=== PATIENT | female | born 1950 | race Caucasian/White ===

== ENCOUNTER 2017-01-20 17:08 | Emergency (ER) | payer SELFPAY ==
[2017-01-20 17:14] VITALS: BP 165/86
[2017-01-20] MEDS ORDERED: DEXAMETHASONE SOD PHOS INJ 10 MG/1 ML VIAL IM ONE (17:55)
[2017-01-20] MEDS ORDERED: DIPHENHYDRAMINE HCL 50 MG/ML VIAL IM ONE (17:58)
[2017-01-20] MEDS ORDERED: TRIAMCINOLONE ACETONIDE 0.1% CREAM 15 GM TOP ONE (17:59)
--- NOTE | 2017-01-20 18:05 | ER Document Report ---
ED Skin Rash/Insect Bite/Abscs - General Chief Complaint: Rash Stated Complaint: RASH Time Seen by Provider: 01/20/17 17:43 Notes: 66 yo female c/o pruritic rash x 3 days. denies new contacts. TRAVEL OUTSIDE OF THE [place] IN LAST 30 DAYS: No - HPI Patient complains to provider of: Skin rash/lesion Skin Character: Rash Skin Temperature: Warm Quality of rash: Itchy Identify cause: No - Related Data Allergies/Adverse Reactions: amoxicillin trihydrate [From Augmentin] Allergy (Mild, Verified 02/22/14 13:56) Potassium Clavulanate * [From Augmentin] Allergy (Mild, Verified 02/22/14 13:56) Sulfa (Sulfonamide Antibiotics) Allergy (Mild, Verified 02/22/14 13:56) ciprofloxacin [From Cipro] Allergy (Verified 02/22/14 13:56) ciprofloxacin HCl [From Cipro] Allergy (Verified 02/22/14 13:56) Past Medical History - General Information source: Patient - Social History Smoking Status: Never Smoker Chew tobacco use (# tins/day): No Frequency of alcohol use: None Drug Abuse: None Family History: Reviewed & Not Pertinent Patient has suicidal ideation: No Patient has homicidal ideation: No - Past Medical History Cardiac Medical History: Reports: Hx Hypercholesterolemia, Hx Hypertension Pulmonary Medical History: Reports: Hx Asthma Renal/ Medical History: Denies: Hx Peritoneal Dialysis GI Medical History: Reports: Hx Gastroesophageal Reflux Disease Past Surgical History: Reports: Hx Tonsillectomy - Immunizations Hx Diphtheria, Pertussis, Tetanus Vaccination: Yes Review of Systems - Review of Systems Constitutional: No symptoms reported EENT: No symptoms reported Cardiovascular: No symptoms reported Respiratory: No symptoms reported Gastrointestinal: No symptoms reported Genitourinary: No symptoms reported Female Genitourinary: No symptoms reported Musculoskeletal: No symptoms reported Skin: See HPI, Rash Hematologic/Lymphatic: No symptoms reported Neurological/Psychological: No symptoms reported Physical Exam - Vital signs Vitals: Temp Pulse Resp BP Pulse Ox 98.2 F 90 19 165/86 H 95 01/20/17 17:12 01/20/17 17:12 01/20/17 17:12 01/20/17 17:12 01/20/17 17:12 Interpretation: Normal - General General appearance: Alert, Anxious In distress: None - HEENT Head: Normocephalic, Atraumatic Eyes: Normal Pupils: PERRL - Respiratory Respiratory status: No respiratory distress Chest status: Nontender Breath sounds: Normal Chest palpation: Normal - Cardiovascular Rhythm: Regular Heart sounds: Normal auscultation Murmur: No - Abdominal Inspection: Normal Distension: No distension Bowel sounds: Normal Tenderness: Nontender Organomegaly: No organomegaly - Back Back: Normal, Nontender - Extremities General upper extremity: Normal inspection, Nontender, Normal color, Normal ROM , Normal temperature General lower extremity: Normal inspection, Nontender, Normal color, Normal ROM , Normal temperature, Normal weight bearing. No: Sally's sign - Neurological Neuro grossly intact: Yes Cognition: Normal Orientation: AAOx4 [place] Coma Scale Eye Opening: Spontaneous Marcio Coma Scale Verbal: Oriented [place] Coma Scale Motor: Obeys Commands Marcio Coma Scale Total: 15 Speech: Normal Motor strength normal: LUE, RUE, LLE, RLE Sensory: Normal - Psychological Associated symptoms: Normal affect, Normal mood - Skin Skin Temperature: Warm Skin Moisture: Dry Skin Color: Normal Skin irregularity: Rash Location of irregularity: Extremities Character of irregularity: Papular, Vesicular - scattered papulovesicular patches to bilat volar forearms and lower extremities. no s/s secondary infection Course - Vital Signs Vital signs: Temp Pulse Resp BP Pulse Ox 98.2 F 90 19 165/86 H 95 01/20/17 17:12 01/20/17 17:12 01/20/17 17:12 01/20/17 17:12 01/20/17 17:12 Discharge - Discharge Clinical Impression: Contact dermatitis Qualifiers: Contact dermatitis type: unspecified Contact dermatitis trigger: unspecified trigger Qualified Code(s): L25.9 - Unspecified contact dermatitis, unspecified cause Disposition: HOME, SELF-CARE Instructions: Contact Dermatitis ([facility]), Steroid Medication, Steroid Medication Injection, Antihistamines ([facility]), Topical Steroid Cream or Ointment ([facility]) Prescriptions: Hydroxyzine HCl [Atarax 25 mg Tablet] 1 - 2 tab PO QID #25 tablet Triamcinolone Acetonide [Aristocort 0.5% Cream 15 gm] 1 applic TP BID #15 g Forms: Elevated Blood Pressure
== END 2017-01-20 18:21 | disposition home or self-care (01) ==
LOC: ER 17:08
DX: L25.9 Unspecified contact dermatitis, unspecified cause (principal); R21 Rash and other nonspecific skin eruption
CPT/HCPCS: 99282; 96372; J1200; J3490; J1100

== ENCOUNTER 2017-06-10 16:46 | Emergency (ER) | payer SELFPAY ==
--- NOTE | 2017-06-10 17:54 | ER Document Report ---
ED Medical Screen (RME) - General Chief Complaint: Chest Congestion Stated Complaint: CHEST PAIN Time Seen by Provider: 06/10/17 17:52 Notes: Patient is a 67-year-old female, past medical history hypertension, presents with chest pain and tingling in her bilateral arms. She is also feeling short of breath and has a dry cough with sinus congestion over the past few days. PE: NAD. Lungs CTAB. RRR. I have greeted and performed a rapid initial assessment of this patient. A comprehensive ED assessment and evaluation of the patient, analysis of test results and completion of the medical decision making process will be conducted by additional ED providers. TRAVEL OUTSIDE OF THE [place] IN LAST 30 DAYS: No - Related Data Allergies/Adverse Reactions: amoxicillin trihydrate [From Augmentin] Allergy (Mild, Verified 06/10/17 17:01) Potassium Clavulanate * [From Augmentin] Allergy (Mild, Verified 06/10/17 17:01) Sulfa (Sulfonamide Antibiotics) Allergy (Mild, Verified 06/10/17 17:01) ciprofloxacin [From Cipro] Allergy (Verified 06/10/17 17:01) ciprofloxacin HCl [From Cipro] Allergy (Verified 06/10/17 17:01) Home Medications: Current Home Medications Esomeprazole Magnesium [Nexium 24Hr] 40 mg PO DAILY 06/10/17 [History] Past Medical History - Social History Chew tobacco use (# tins/day): No Frequency of alcohol use: None Drug Abuse: None - Past Medical History Cardiac Medical History: Reports: Hx Hypercholesterolemia, Hx Hypertension Pulmonary Medical History: Reports: Hx Asthma Renal/ Medical History: Denies: Hx Peritoneal Dialysis GI Medical History: Reports: Hx Gastroesophageal Reflux Disease Past Surgical History: Reports: Hx Tonsillectomy - Immunizations Hx Diphtheria, Pertussis, Tetanus Vaccination: Yes Physical Exam - Vital signs Vitals: Temp Pulse BP Pulse Ox 98.5 F 97 150/83 H 97 06/10/17 16:56 06/10/17 16:56 06/10/17 16:56 06/10/17 16:56 Course - Vital Signs Vital signs: Temp Pulse Resp BP Pulse Ox 98.5 F 97 150/83 H 97 06/10/17 16:56 06/10/17 16:56 06/10/17 16:56 06/10/17 16:56
[2017-06-10 19:05] LABS: ABSOLUTE EOSINOPHILS # (AUTO) 0.1 10^3/uL (0.0-0.6); ABSOLUTE MONOCYTES (AUTO) 0.6 10^3/uL (0.1-1.4); ABSOLUTE NEUT (AUTO) 4.9 10^3/uL (1.7-8.2); BASOPHILS % (AUTO) 0.6 % (0-2); HEMATOCRIT 43.1 % (36.0-47.0); HEMOGLOBIN 15.2 g/dL (12.0-15.5); HGB HCT DIFFERENCE 2.5; LYMPHOCYTES % (AUTO) 26.2 % (13-45); MEAN CORPUSCULAR HGB CONC 35.3 g/dL (32.0-36.0); MEAN CORPUSCULAR VOLUME 94 fl (80-97); MONOCYTES % (AUTO) 8.4 % (3-13); RED CELL DISTRIBUTION WIDTH 13.4 % (11.5-14.0); SEGMENTED NEUTROPHILS % (AUTO) 63.8 % (42-78); WHITE BLOOD COUNT 7.7 10^3/uL (4.0-10.5)
[2017-06-10 19:17] LABS: ALANINE AMINOTRANSFERASE 32 U/L (9-52); ALBUMIN 4.8 g/dL (3.5-5.0); ALKALINE PHOSPHATASE 65 U/L (38-126); ANION GAP 15 (5-19); ASPARTATE AMINO TRANSFERASE 19 U/L (14-36); BILIRUBIN,DIRECT 0.4 mg/dL (0.0-0.4); BILIRUBIN,TOTAL 0.5 mg/dL (0.2-1.3); BLOOD UREA NITROGEN 22 mg/dL (7-20); CALCIUM 10.3 mg/dL (8.4-10.2); CARBON DIOXIDE 22 mmol/L (22-30); CHLORIDE 106 mmol/L (98-107); CREATINE KINASE 79 U/L (30-135); CREATININE RESULT 0.91 mg/dL (0.52-1.25); GLUCOSE 99 mg/dL (75-110); POTASSIUM 4.6 mmol/L (3.6-5.0); SODIUM 143.1 mmol/L (137-145); TOTAL PROTEIN 7.5 g/dL (6.3-8.2)
[2017-06-10 19:29] LABS: CREATINE KINASE MB 1.05 ng/mL (<4.55)
[2017-06-10 19:30] LABS: TROPONIN I < 0.012 ng/mL
--- NOTE | 2017-06-10 20:00 | ER Document Report ---
ED General - General Chief Complaint: Chest Congestion Stated Complaint: CHEST PAIN Time Seen by Provider: 06/10/17 17:52 Mode of Arrival: Ambulatory Information source: Patient Notes: 67-year-old female presents with complaints of chest congestion cough. Patient denies any fevers or chills notes generalized body aches. Patient states she believes she is having upper respiratory infection denies any chest pain but notes achiness in her chest TRAVEL OUTSIDE OF THE [place] IN LAST 30 DAYS: No - HPI Onset: Yesterday Onset/Duration: Persistent Quality of pain: Achy Severity: Mild Pain Level: 1 Associated symptoms: Body/muscle aches, Nonproductive cough Exacerbated by: Denies Relieved by: Denies Similar symptoms previously: No Recently seen / treated by doctor: No - Related Data Allergies/Adverse Reactions: amoxicillin trihydrate [From Augmentin] Allergy (Mild, Verified 06/10/17 17:01) Potassium Clavulanate * [From Augmentin] Allergy (Mild, Verified 06/10/17 17:01) Sulfa (Sulfonamide Antibiotics) Allergy (Mild, Verified 06/10/17 17:01) ciprofloxacin [From Cipro] Allergy (Verified 06/10/17 17:01) ciprofloxacin HCl [From Cipro] Allergy (Verified 06/10/17 17:01) Home Medications: Current Home Medications Esomeprazole Magnesium [Nexium 24Hr] 40 mg PO DAILY 06/10/17 [History] Past Medical History - Social History Smoking Status: Never Smoker Cigarette use (# per day): No Chew tobacco use (# tins/day): No Smoking Education Provided: No Frequency of alcohol use: None Drug Abuse: None Family History: Reviewed & Not Pertinent Patient has suicidal ideation: No Patient has homicidal ideation: No - Past Medical History Cardiac Medical History: Reports: Hx Hypercholesterolemia, Hx Hypertension Pulmonary Medical History: Reports: Hx Asthma Renal/ Medical History: Denies: Hx Peritoneal Dialysis GI Medical History: Reports: Hx Gastroesophageal Reflux Disease Past Surgical History: Reports: Hx Tonsillectomy - Immunizations Hx Diphtheria, Pertussis, Tetanus Vaccination: Yes Review of Systems - Review of Systems Notes: REVIEW OF SYSTEMS: CONSTITUTIONAL : Denies fever, chills, or sweats. Denies recent illness. Admits to generalized malaise EENT: Denies eye, ear, throat, or mouth pain or symptoms. Denies nasal or sinus congestion or discharge. Denies throat, tongue, or mouth swelling or difficulty swallowing. CARDIOVASCULAR: Denies chest pain. Denies palpitations or racing or irregular heart beat. Denies ankle edema. RESPIRATORY: Admits to cough congestion. GASTROINTESTINAL: Denies abdominal pain or distention. Denies nausea, vomiting , or diarrhea. Denies blood in vomitus, stools, or per rectum. Denies black, tarry stools. Denies constipation. GENITOURINARY: Denies difficulty urinating, painful urination, burning, frequency, blood in urine, or discharge. FEMALE GENITOURINARY: Denies vaginal bleeding, heavy or abnormal periods, irregular periods. Denies vaginal discharge or odor. MUSCULOSKELETAL: Denies back or neck pain or stiffness. Denies joint pain or swelling. SKIN: Denies rash, lesions or sores. HEMATOLOGIC : Denies easy bruising or bleeding. LYMPHATIC: Denies swollen, enlarged glands. NEUROLOGICAL: Denies confusion or altered mental status. Denies passing out or loss of consciousness. Denies dizziness or lightheadedness. Denies headache. Denies weakness or paralysis or loss of use of either side. Denies problems with gait or speech. Denies sensory loss, numbness, or tingling. Denies seizures. PSYCHIATRIC: Denies anxiety or stress. Denies depression, suicidal ideation, or homicidal ideation. ALL OTHER SYSTEMS REVIEWED AND NEGATIVE. PHYSICAL EXAMINATION: GENERAL: Well-appearing, well-nourished and in no acute distress. HEAD: Atraumatic, normocephalic. EYES: Pupils equal round and reactive to light, extraocular movements intact, conjunctiva are normal. ENT: Nares patent, oropharynx clear without exudates. Moist mucous membranes. NECK: Normal range of motion, supple without lymphadenopathy LUNGS: Breath sounds clear to auscultation bilaterally and equal. No wheezes rales or rhonchi. HEART: Regular rate and rhythm without murmurs ABDOMEN: Soft, nontender, nondistended abdomen. No guarding, no rebound. No masses appreciated. Female : deferred Musculoskeletal: Normal range of motion, no pitting or edema. No cyanosis. NEUROLOGICAL: Cranial nerves grossly intact. Normal speech, normal gait. Normal sensory, motor exams PSYCH: Normal mood, normal affect. SKIN: Warm, Dry, normal turgor, no rashes or lesions noted. Dictation was performed using Dragon voice recognition software Physical Exam - Vital signs Vitals: Temp Pulse BP Pulse Ox 98.5 F 97 150/83 H 97 06/10/17 16:56 06/10/17 16:56 06/10/17 16:56 06/10/17 16:56 Course - Re-evaluation Re-evalutation: 06/10/17 23:48 Patient's presentation is consistent with a viral URI syndrome. Patient overall looks well is in no distress, lab work was performed as the patient had very vague complaints and no significant abnormality was noted. I believe the patient in fact is having a viral syndrome but I have given her very strict return precautions to return immediately if there are any other concerns After performing a Medical Screening Examination, I estimate there is LOW risk for ACUTE CORONARY SYNDROME, PULMONARY EMBOLI, RESPIRATORY FAILURE, SEPSIS OR MENINGITIS, thus I consider the discharge disposition reasonable. I have reevaluated this patient multiple times and no significant life threatening changes are noted. The patient and I have discussed the diagnosis and risks, and we agree with discharging home with close follow-up. We also discussed returning to the Emergency Department immediately if new or worsening symptoms occur. We have discussed the symptoms which are most concerning (e.g., changing or worsening pain, trouble swallowing or breathing, neck stiffness, fever) that necessitate immediate return. - Vital Signs Vital signs: Temp Pulse Resp BP Pulse Ox 98.6 F 97 19 109/67 99 06/10/17 20:01 06/10/17 16:56 06/10/17 20:01 06/10/17 20:01 06/10/17 20:01 - Laboratory Result Diagrams: 06/10/17 17:52 06/10/17 17:52 Laboratory results interpreted by me: 06/10/17 17:52 BUN 22 H Calcium 10.3 H - EKG Interpretation by Ar EKG shows normal: Sinus rhythm, [place], Intervals, QRS Complexes Discharge - Discharge Clinical Impression: Chest congestion Hypertension Qualifiers: Hypertension type: essential hypertension Qualified Code(s): I10 - Essential ( primary) hypertension Condition: Stable Disposition: HOME, SELF-CARE Instructions: Viral Syndrome ([facility]) Additional Instructions: Follow up with your physician tomorrow for further care or return to the ED IMMEDIATELY if symptoms worsen or new concerns occur. If you cannot afford to follow up with your primary care physician a list of low cost clinics have been provided at the end of your discharge papers as well.
[2017-06-10 20:12] VITALS: BP 109/67
--- NOTE | 2017-06-11 09:27 | EKG REPORT ---
SEVERITY:- NORMAL ECG - SINUS RHYTHM : Confirmed by: Hal Ibarra 11-Jun-2017 09:26:34
== END 2017-06-10 20:18 | disposition home or self-care (01) ==
LOC: ER 16:46
DX: R09.89 Other specified symptoms and signs involving the circulatory and respiratory systems (principal); R05 Cough; M79.1 Myalgia; I10 Essential (primary) hypertension; J45.909 Unspecified asthma, uncomplicated; Z88.0 Allergy status to penicillin; Z88.2 Allergy status to sulfonamides; Z88.1 Allergy status to other antibiotic agents
CPT/HCPCS: 36415; 80053; 82550; 82553; 84484; 85025; 93005; 93010; 99283

== ENCOUNTER 2017-09-17 21:44 | Emergency (ER) | payer SELFPAY ==
[2017-09-17] MEDS ORDERED: CEPHALEXIN 500 MG CAPSULE PO ONE (23:21)
--- NOTE | 2017-09-17 23:24 | ER Document Report ---
HPI - HPI Patient complains to provider of: Insect bite Onset: Other - Yesterday at 5:30 PM Pain Level: 4 Context: 67-year-old obese nondiabetic hypertensive female was bitten by something when she she raised her right arm to open a car door yesterday evening at 5:30 PM. It itches but hurts at the same time. She has a mild headache today. The erythema surrounding the bite has gotten larger today and she wanted to make sure there was nothing majorly wrong. No fever. Associated Symptoms: None Exacerbated by: Denies Relieved by: Denies Similar symptoms previously: No Recently seen / treated by doctor: No - ROS ROS below otherwise negative: Yes Systems Reviewed and Negative: Yes All other systems reviewed and negative - REPRODUCTIVE LMP: na Reproductive: DENIES: : Past Medical History - General Information source: Patient - Social History Smoking Status: Never Smoker Frequency of alcohol use: None Drug Abuse: None Lives with: Family Family History: Reviewed & Not Pertinent - Past Medical History Cardiac Medical History: Reports: Hx Hypercholesterolemia, Hx Hypertension Pulmonary Medical History: Reports: Hx Asthma Renal/ Medical History: Denies: Hx Peritoneal Dialysis GI Medical History: Reports: Hx Gastroesophageal Reflux Disease Past Surgical History: Reports: Hx Tonsillectomy - Immunizations Hx Diphtheria, Pertussis, Tetanus Vaccination: Yes Vertical Provider Document - CONSTITUTIONAL Agree With Documented VS: Yes Exam Limitations: No Limitations - INFECTION CONTROL TRAVEL OUTSIDE OF THE [place] IN LAST 30 DAYS: No - HEENT HEENT: Normocephalic - NECK Neck: Supple - RESPIRATORY Respiratory: Breath Sounds Normal, No Respiratory Distress O2 Sat by Pulse Oximetry: 97 - CARDIOVASCULAR Cardiovascular: Regular Rate, Regular Rhythm - MUSCULOSKELETAL/EXTREMETIES Musculoskeletal/Extremeties: MAEW, FROM, Tender - mild tender to 0.5 mm indurated bite volar right mid upper arm with flat, mildly warm surrounding 7 cm pink non tender skin, no adenopathy. no necrosis or sloughing. - NEURO Level of Consciousness: Awake, Alert Motor/Sensory: No Motor Deficit, No Sensory Deficit - DERM Integumentary: Warm, Dry Notes: see above Course - Re-evaluation Re-evalutation: 09/17/17 23:22 Patient states she is able to take Keflex she has taken it in the past without allergic reaction. - Vital Signs Vital signs: Temp Pulse Resp BP Pulse Ox 98.1 F 79 120/69 97 09/17/17 22:09 09/17/17 22:09 09/17/17 22:09 09/17/17 22:09 Discharge - Discharge Clinical Impression: Local reaction to insect bite Condition: Good Disposition: HOME, SELF-CARE Instructions: Cephalexin ([facility]), Use of Diphenhydramine, Family Physicians / Practices, Ice Packs ([facility]) Additional Instructions: cool compress antibiotics as prescribed, if the red area resolves you can stop the antibiotic benadryl for the itch to er any concerns list of family MD given to you since new to the area
[2017-09-17 23:46] VITALS: BP 142/68
== END 2017-09-17 23:44 | disposition home or self-care (01) ==
LOC: ER 21:44
DX: S40.861A Insect bite (nonvenomous) of right upper arm, initial encounter (principal); R51 Headache; E78.00 Pure hypercholesterolemia, unspecified; I10 Essential (primary) hypertension; W57.XXXA Bitten or stung by nonvenomous insect and other nonvenomous arthropods, initial encounter
CPT/HCPCS: 99281

== ENCOUNTER 2018-06-25 12:39 | Emergency (ER) | payer MEDICARE ==
[2018-06-25] MEDS ORDERED: NORMAL SALINE 1000 ML 1,000 ML IV ONE (13:13)
[2018-06-25] MEDS ORDERED: ONDANSETRON HCL INJ/PF 4 MG/2 ML SDV IV ONE (13:13)
--- NOTE | 2018-06-25 13:29 | ER Document Report ---
ED Medical Screen (RME) - General Chief Complaint: GI Bleeding Stated Complaint: VOMITING Time Seen by Provider: 06/25/18 12:56 Notes: Patient is a 68-year-old female that presents to the emergency department for chief complaint of generalized weakness, cramping and nausea. Patient states this all started after receiving steroid injections in her knees, but her orthopedic surgeon did not think this was related, she also reports having a nosebleed last night. ROS: Other than noted above, the 12 point review of systems was reviewed with the patient and were negative, all pertinent findings are included in the HPI. PHYSICAL EXAMINATION: Vital signs reviewed. GENERAL: Well-appearing, well-nourished and in no acute distress. HEAD: Atraumatic, normocephalic. EYES: Pupils equal round extraocular movements intact, conjunctiva are normal. ENT: Nares patent NECK: Normal range of motion CV: Heart regular rate and rhythm LUNGS: No respiratory distress Musculoskeletal: Normal range of motion NEUROLOGICAL: Normal speech PSYCH: Normal mood, normal affect. MDM: Patient seen and examined for rapid initial assessment. Vital signs reviewed. A comprehensive ED assessment and evaluation of the patient, analysis of test results and completion of the medical decision making process will be conducted by additional ED providers. *Note is created using voice recognition software and may contain spelling, syntax or grammatical errors. TRAVEL OUTSIDE OF THE [place] IN LAST 30 DAYS: No - Related Data Allergies/Adverse Reactions: amoxicillin trihydrate [From Augmentin] Allergy (Mild, Verified 06/25/18 12:56) Potassium Clavulanate * [From Augmentin] Allergy (Mild, Verified 06/25/18 12:56) Sulfa (Sulfonamide Antibiotics) Allergy (Mild, Verified 06/25/18 12:56) ciprofloxacin [From Cipro] Allergy (Verified 06/25/18 12:56) ciprofloxacin HCl [From Cipro] Allergy (Verified 06/25/18 12:56) ibuprofen Allergy (Verified 06/25/18 12:57) Past Medical History - Social History Chew tobacco use (# tins/day): No Frequency of alcohol use: None Drug Abuse: None - Past Medical History Cardiac Medical History: Reports: Hx Hypercholesterolemia, Hx Hypertension Pulmonary Medical History: Reports: Hx Asthma Renal/ Medical History: Denies: Hx Peritoneal Dialysis GI Medical History: Reports: Hx Gastroesophageal Reflux Disease Past Surgical History: Reports: Hx Tonsillectomy - Immunizations Hx Diphtheria, Pertussis, Tetanus Vaccination: Yes Physical Exam - Vital signs Vitals: Temp Pulse Resp BP Pulse Ox 98.2 F 92 16 144/80 H 97 06/25/18 12:54 06/25/18 12:54 06/25/18 12:54 06/25/18 12:54 06/25/18 12:54 Course - Vital Signs Vital signs: Temp Pulse Resp BP Pulse Ox 98.2 F 92 16 144/80 H 97 06/25/18 12:54 06/25/18 12:54 06/25/18 12:54 06/25/18 12:54 06/25/18 12:54
[2018-06-25 13:57] LABS: ABSOLUTE BASOPHILS # (AUTO) 0.1 10^3/uL (0.0-0.2); ABSOLUTE EOSINOPHILS # (AUTO) 0.1 10^3/uL (0.0-0.6); ABSOLUTE MONOCYTES (AUTO) 0.8 10^3/uL (0.1-1.4); EOSINOPHILS % (AUTO) 1.4 % (0-6); HEMATOCRIT 42.8 % (36.0-47.0); HEMOGLOBIN 14.9 g/dL (12.0-15.5); LYMPHOCYTES % (AUTO) 19.8 % (13-45); MEAN CORPUSCULAR HEMOGLOBIN 32.9 pg (27.0-33.4); MEAN CORPUSCULAR HGB CONC 34.8 g/dL (32.0-36.0); MEAN CORPUSCULAR VOLUME 95 fl (80-97); MONOCYTES % (AUTO) 7.8 % (3-13); PLATELET COUNT 255 10^3/uL (150-450); RED BLOOD COUNT 4.53 10^6/uL (3.72-5.28); RED CELL DISTRIBUTION WIDTH 13.6 % (11.5-14.0); TOTAL CELLS COUNTED % (AUTO) 100 %
[2018-06-25 14:04] LABS: APPEARANCE,URINE SLIGHTLY-CLOUDY; BILIRUBIN,URINE NEGATIVE (NEGATIVE); COLOR,URINE YELLOW; GLUCOSE, URINE NEGATIVE (NEGATIVE); KETONES,URINE NEGATIVE (NEGATIVE); LEUKOCYTE ESTERASE,URINE MODERATE (NEGATIVE); NITRITE,URINE NEGATIVE (NEGATIVE); PROTEIN,URINE NEGATIVE (NEGATIVE); UROBILINOGEN,URINE NEGATIVE mg/dL (<2.0)
[2018-06-25 14:27] LABS: ALANINE AMINOTRANSFERASE 23 U/L (9-52); ALBUMIN 4.7 g/dL (3.5-5.0); ALKALINE PHOSPHATASE 60 U/L (38-126); ANION GAP 12 (5-19); ASPARTATE AMINO TRANSFERASE 40 U/L (14-36); BILIRUBIN,DIRECT 0.3 mg/dL (0.0-0.4); BILIRUBIN,TOTAL 0.6 mg/dL (0.2-1.3); BLOOD UREA NITROGEN 25 mg/dL (7-20); CALCIUM 9.7 mg/dL (8.4-10.2); CARBON DIOXIDE 24 mmol/L (22-30); CHLORIDE 106 mmol/L (98-107); GLUCOSE 99 mg/dL (75-110); LIPASE 146.1 U/L (23-300); POTASSIUM 4.4 mmol/L (3.6-5.0); SODIUM 142.1 mmol/L (137-145); TOTAL PROTEIN 7.7 g/dL (6.3-8.2)
--- NOTE | 2018-06-25 14:48 | RADIOLOGY REPORT (SQ) ---
EXAM DESCRIPTION: CHEST 2 VIEWS COMPLETED DATE/TIME: 06/25/2018 2:13 pm REASON FOR STUDY: cough, generalized weakness COMPARISON: 02/13/2011 EXAM PARAMETERS: NUMBER OF VIEWS: two views TECHNIQUE: Digital Frontal and Lateral radiographic views of the chest acquired. RADIATION DOSE: NA LIMITATIONS: none FINDINGS: LUNGS AND PLEURA: No opacities, masses or pneumothorax. No pleural effusion. MEDIASTINUM AND HILAR STRUCTURES: No masses or contour abnormalities. HEART AND VASCULAR STRUCTURES: Heart normal size. No evidence for failure. BONES: No acute findings. HARDWARE: None in the chest. OTHER: No other significant finding. IMPRESSION: NO ACUTE RADIOGRAPHIC FINDING IN THE CHEST. TECHNICAL DOCUMENTATION: JOB ID: [id number] [employer]- All Rights Reserved Reading location - IP/workstation name: [email or web address]
--- NOTE | 2018-06-25 17:12 | ER Document Report ---
ED General - General Chief Complaint: GI Bleeding Stated Complaint: VOMITING Time Seen by Provider: 06/25/18 12:56 Mode of Arrival: Ambulatory Information source: Patient Notes: Patient is a 68-year-old female comes emergency room complaining of vomiting blood and epistaxis. Patient states that it all seems to have started approximately 1 month ago when she had injections of cortisone into her knees. Patient has bad knees and x-rays show that she is [id number]. She had a shots done by Dr. Sebastian and this was 3 months ago. Following those shots patient is started having all kinds of symptomatology which she says is bringing her down. She has been having cramping in her lower extremities she has had nausea and fatigue she has had all kinds of discomfort she contacted her orthopedist Dr. Sebastian and he told her that the cortisone would have caused this. They went by to see either primary care physician today Dr. Destin Shelton but they had someone covering for him when I told him what they are talking about he told him to come to ER. Patient states that she is just felt rundown and ragged and not acting her normal self. Her daughter states that this is very true that she is normally an upbeat person and the only thing ever slowed her down with her knees. Both knees are [id number] and they are going to have to be replaced but they thought they would try the cortisone shots first. Last night patient woke up and had a cough and as she coughed a large amount of bright red blood came pouring out of her mouth her daughter and then as she was vomiting that out blood came out her nose as well. They cleaned her up apply pressure to the nose and patient has had no bleeding since then. She denies any shortness of breath or chest pain. She is eating well and drinking well according to her and her daughter. Her muscle cramps have been gotten worse. Patient states she drinks at least 5-6 bottles of water a day. TRAVEL OUTSIDE OF THE [place] IN LAST 30 DAYS: No - HPI Onset: Other - Last night Onset/Duration: Sudden, Better Quality of pain: Achy, Cramping Severity: Moderate Pain Level: 3 Associated symptoms: Productive cough, Nausea - So, Vomiting Exacerbated by: Other - Nothing Similar symptoms previously: No Recently seen / treated by doctor: No - Related Data Allergies/Adverse Reactions: amoxicillin trihydrate [From Augmentin] Allergy (Mild, Verified 06/25/18 12:56) Potassium Clavulanate * [From Augmentin] Allergy (Mild, Verified 06/25/18 12:56) Sulfa (Sulfonamide Antibiotics) Allergy (Mild, Verified 06/25/18 12:56) ciprofloxacin [From Cipro] Allergy (Verified 06/25/18 12:56) ciprofloxacin HCl [From Cipro] Allergy (Verified 06/25/18 12:56) ibuprofen Allergy (Verified 06/25/18 12:57) Past Medical History - General Information source: Patient, Relative - Social History Smoking Status: Never Smoker Cigarette use (# per day): No Chew tobacco use (# tins/day): No Smoking Education Provided: No Frequency of alcohol use: None Drug Abuse: None Lives with: Family Family History: Reviewed & Not Pertinent Patient has suicidal ideation: No Patient has homicidal ideation: No - Past Medical History Cardiac Medical History: Reports: Hx Hypercholesterolemia, Hx Hypertension Pulmonary Medical History: Reports: Hx Asthma Renal/ Medical History: Denies: Hx Peritoneal Dialysis GI Medical History: Reports: Hx Gastroesophageal Reflux Disease Past Surgical History: Reports: Hx Tonsillectomy - Immunizations Hx Diphtheria, Pertussis, Tetanus Vaccination: Yes Review of Systems - Review of Systems Constitutional: No symptoms reported EENT: No symptoms reported, Nose pain, Nose congestion, Other - Hematemesis epistaxis, Cardiovascular: No symptoms reported Respiratory: No symptoms reported Gastrointestinal: See HPI Genitourinary: No symptoms reported Female Genitourinary: No symptoms reported Musculoskeletal: No symptoms reported Skin: No symptoms reported Hematologic/Lymphatic: No symptoms reported Neurological/Psychological: No symptoms reported -: Yes All other systems reviewed and negative Physical Exam - Vital signs Vitals: Temp Pulse Resp BP Pulse Ox 98.2 F 92 16 144/80 H 97 06/25/18 12:54 06/25/18 12:54 06/25/18 12:54 06/25/18 12:54 06/25/18 12:54 - Notes Notes: PHYSICAL EXAMINATION: GENERAL: Patient is a well-nourished well developed obese 68-year-old female who is in no apparent distress on physical examination. Patient is awake alert and oriented x4. She is arousable out of laying or taking a nap waiting on us to see her. HEAD: Atraumatic, normocephalic. EYES: Pupils equal round and reactive to light, extraocular movements intact, conjunctiva are normal. ENT: Nares patent, oropharynx clear without exudates. Moist mucous membranes. Examination of the internal nose as far as I can see with the speculum shows no sign of blood clots to dried blood or any excoriations. Examination of the oral cavity also shows no signs of lesions or bleeding or having dried blood. NECK: Normal range of motion, supple without lymphadenopathy LUNGS: Breath sounds clear to auscultation bilaterally and equal. No wheezes rales or rhonchi. HEART: Regular rate and rhythm without murmurs ABDOMEN: No guarding, no rebound. No masses appreciated. Female : deferred Musculoskeletal: Normal range of motion, no pitting or edema. No cyanosis. NEUROLOGICAL: Normal speech, normal gait. Normal sensory, motor exams PSYCH: Normal mood, normal affect. SKIN: Warm, Dry, normal turgor, no rashes or lesions noted. Course - Re-evaluation Re-evalutation: 06/25/18 17:18 I have gone and explained to patient and daughter after looking at the labs to do my physical examination there is nothing abnormal that I can find. Originally I went into them around 330 4:00 and we discussed this and I just could not believe that there was nothing wrong. I did inform them that there was a slight UTI that I would treat her for that and it could be causing her nausea but is not causing although to think she is got. I told her that I may not build to find the answers to this however I did agree to do a CRP and a sed rate I told him would take approximately an hour to an hour and a half to get those back and they agree to wait. I try to explain to them that these are markers that show inflammation/infection and if they were negative they are negative they are positive then we have to search some more. Patient's CRP came back at less than 5.0. And her ESR came back at 19 which is normal. I have explained to them that may not be a little told him was going on with her tonight that they may have to have a further workup for possibly autoimmune problems I do not know however I know that there is nothing is going to kill her tonight. I will treat her for the small urinary tract infection she has with this is not causing the problems. They can always return if anything pops up or gets worse. Patient does not take any kind of blood thinners. She actually takes no medications. ` - Vital Signs Vital signs: Temp Pulse Resp BP Pulse Ox 98.2 F 92 16 103/56 L 99 06/25/18 12:54 06/25/18 12:54 06/25/18 12:54 06/25/18 15:01 06/25/18 15:01 - Laboratory Result Diagrams: 06/25/18 13:35 06/25/18 13:35 Laboratory results interpreted by me: 06/25/18 06/25/18 13:35 13:35 BUN 25 H AST 40 H Urine Blood SMALL H Ur Leukocyte Esterase MODERATE H Discharge - Discharge Clinical Impression: Epistaxis, Hematemesis with nausea UTI (urinary tract infection) Qualifiers: Urinary tract infection type: acute cystitis Hematuria presence: without hematuria Qualified Code(s): N30.00 - Acute cystitis without hematuria Condition: Stable Disposition: HOME, SELF-CARE Instructions: Nitrofurantoin ([facility]), Prilosec (Acid Pump Inhibitor) ([facility]), Upper Gastrointestinal Bleeding ([facility]), Urinary Tract Infection ([facility]) Additional Instructions: As of informed you I cannot really tell you what is happening with the cortisone shots in the knee and their correlation to your body aching pain. There is always a chance that you have some type of an autoimmune immune response and takes time for her to rise course there is nothing out of the ER I can do to prove or disprove that fact. At this time I would say follow-up with your primary care is your best advice and there may be other test he can run out patients like a electrophoresis study that I can do out of the emergency room because it is not an emergent type of test. Should you have any change in your status if you have active bleeding please return to ER let us take another look at you and situation. I cannot see any ulcerations in the nasal area nor in the oral cavity. But this does not mean that is not thereby just cannot see them. I am going to treat you for the urinary tract infection it is a small 1 I will also culture the urine in case the antibiotic is one that you might be resistant to. Prescriptions: Nitrofurantoin/Nitrofuran Mac [Macrobid 100 mg Capsule] 1 tab PO BID #20 capsule Promethazine HCl [Phenergan 25 mg Tablet] 1 - 2 tab PO Q6H PRN #15 tablet PRN Reason: Referrals: [facility] [NO LOCAL MD] - Follow up as needed
[2018-06-25 17:44] VITALS: BP 122/68
--- NOTE | 2018-06-25 22:30 | EKG REPORT ---
SEVERITY:- BORDERLINE ECG - SINUS RHYTHM ATRIAL PREMATURE COMPLEX LOW VOLTAGE THROUGHOUT : Confirmed by: Immanuel Zafar MD 25-Jun-2018 22:29:45
== END 2018-06-25 17:44 | disposition home or self-care (01) ==
LOC: ER 12:39
DX: K92.0 Hematemesis (principal); R04.0 Epistaxis; N30.00 Acute cystitis without hematuria; R53.83 Other fatigue; R25.2 Cramp and spasm; R04.2 Hemoptysis; I10 Essential (primary) hypertension; J45.909 Unspecified asthma, uncomplicated; E66.9 Obesity, unspecified; Z88.0 Allergy status to penicillin; Z88.2 Allergy status to sulfonamides; Z88.1 Allergy status to other antibiotic agents; Z88.6 Allergy status to analgesic agent
CPT/HCPCS: 93005; 99285; 96361; 96374; 36415; 83690; 85025; 85652; 86140; 80053; 81001; 84484; 71046; 93010; J2405; J7030

== ENCOUNTER 2019-08-28 15:03 | Emergency (ER) | payer MEDICARE ==
--- NOTE | 2019-08-28 16:23 | ER Document Report ---
ED Medical Screen (RME) - General Chief Complaint: Urinary Problem Stated Complaint: URINARY PROBLEM Time Seen by Provider: 08/28/19 16:20 Notes: 69 y/o female presents for dysuria, pelvic pressure, and low back pain for 4 days. Pt states she thinks it may be a UTI. ABd soft, nontender. No CVA TEnderness. Denies vomiting, flank pain. Associated nausea. I have greeted and performed a rapid initial assessment of this patient. A comprehensive ED assessment and evaluation of the patient, analysis of test results and completion of the medical decision making process with be conducted by additional ED providers. TRAVEL OUTSIDE OF THE [place] IN LAST 30 DAYS: No - Related Data Allergies/Adverse Reactions: amoxicillin trihydrate [From Augmentin] Allergy (Mild, Verified 06/25/18 12:56) Potassium Clavulanate * [From Augmentin] Allergy (Mild, Verified 06/25/18 12:56) Sulfa (Sulfonamide Antibiotics) Allergy (Mild, Verified 06/25/18 12:56) ciprofloxacin [From Cipro] Allergy (Verified 06/25/18 12:56) ciprofloxacin HCl [From Cipro] Allergy (Verified 06/25/18 12:56) ibuprofen Allergy (Verified 06/25/18 12:57) Past Medical History - Past Medical History Cardiac Medical History: Reports: Hx Hypercholesterolemia, Hx Hypertension Pulmonary Medical History: Reports: Hx Asthma Renal/ Medical History: Denies: Hx Peritoneal Dialysis GI Medical History: Reports: Hx Gastroesophageal Reflux Disease Past Surgical History: Reports: Hx Tonsillectomy - Immunizations Hx Diphtheria, Pertussis, Tetanus Vaccination: Yes Physical Exam - Vital signs Vitals: Temp Pulse Resp BP Pulse Ox 98.3 F 101 H 18 155/84 H 97 08/28/19 15:20 08/28/19 15:20 08/28/19 15:20 08/28/19 15:20 08/28/19 15:20 Course - Vital Signs Vital signs: Temp Pulse Resp BP Pulse Ox 98.3 F 101 H 18 155/84 H 97 08/28/19 15:20 08/28/19 15:20 08/28/19 15:20 08/28/19 15:20 08/28/19 15:20
[2019-08-28 17:12] LABS: AMORPHOUS SEDIMENT,URINE TRACE /HPF; APPEARANCE,URINE CLOUDY; BILIRUBIN,URINE NEGATIVE (NEGATIVE); COLOR,URINE AMBER; GLUCOSE, URINE NEGATIVE (NEGATIVE); KETONES,URINE NEGATIVE (NEGATIVE); PROTEIN,URINE 100 mg/dL (NEGATIVE); URINE SPECIFIC GRAVITY 1.021; UROBILINOGEN,URINE NEGATIVE mg/dL (<2.0)
--- NOTE | 2019-08-28 17:30 | ER Document Report ---
ED General - General Chief Complaint: Urinary Problem Stated Complaint: URINARY PROBLEM Time Seen by Provider: 08/28/19 16:20 Primary Care Provider: [facility] [Provider Group] - Follow up in 3-5 days LYUBOV CLOUD MD [ACTIVE STAFF] - Follow up in 3-5 days Notes: 69 y/o female presents for dysuria, pelvic pressure, and low back pain for 4 days. Associated nausea. Pt states she thinks it may be a UTI. Pt denies any vomiting, fever, flank pain, abdominal pain, diarrhea/constipation, chest pain, dyspnea. Pt states she has been taking Azo with little relief. TRAVEL OUTSIDE OF THE [place] IN LAST 30 DAYS: No - Related Data Allergies/Adverse Reactions: amoxicillin trihydrate [From Augmentin] Allergy (Mild, Verified 06/25/18 12:56) Potassium Clavulanate * [From Augmentin] Allergy (Mild, Verified 06/25/18 12:56) Sulfa (Sulfonamide Antibiotics) Allergy (Mild, Verified 06/25/18 12:56) ciprofloxacin [From Cipro] Allergy (Verified 06/25/18 12:56) ciprofloxacin HCl [From Cipro] Allergy (Verified 06/25/18 12:56) ibuprofen Allergy (Verified 06/25/18 12:57) Past Medical History - Social History Smoking Status: Unknown if Ever Smoked Frequency of alcohol use: None Drug Abuse: None Family History: Reviewed & Not Pertinent Patient has suicidal ideation: No Patient has homicidal ideation: No - Past Medical History Cardiac Medical History: Reports: Hx Hypercholesterolemia, Hx Hypertension Pulmonary Medical History: Reports: Hx Asthma Renal/ Medical History: Denies: Hx Peritoneal Dialysis GI Medical History: Reports: Hx Gastroesophageal Reflux Disease Past Surgical History: Reports: Hx Tonsillectomy - Immunizations Hx Diphtheria, Pertussis, Tetanus Vaccination: Yes Review of Systems - Review of Systems Notes: Constitutional: Negative for fever. HENT: Negative for sore throat. Eyes: Negative for visual changes. Cardiovascular: Negative for chest pain. Respiratory: Negative for shortness of breath. Gastrointestinal: Negative for abdominal pain, vomiting or diarrhea. Genitourinary: Positive for dysuria and bladder pressure. Musculoskeletal: Positive for back pain. Skin: Negative for rash. Neurological: Negative for headaches, weakness or numbness. 10 point ROS negative except as marked above and in HPI. Physical Exam - Vital signs Vitals: Temp Pulse Resp BP Pulse Ox 98.3 F 101 H 18 155/84 H 97 08/28/19 15:20 08/28/19 15:20 08/28/19 15:20 08/28/19 15:20 08/28/19 15:20 - Notes Notes: GENERAL: Well-appearing, well-nourished and in no acute distress. HEAD: Atraumatic, normocephalic. EYES: Extraocular movements intact, sclera anicteric, conjunctiva are normal. NECK: Normal range of motion, supple without lymphadenopathy or JVD. ABDOMEN: Soft, nontender. No guarding, no rebound. No masses appreciated. EXTREMITIES: Normal range of motion, no pitting or edema. No clubbing or cyanosis. NEUROLOGICAL: Cranial nerves II through XII grossly intact. Normal speech, normal gait. PSYCH: Normal mood, normal affect. SKIN: Warm, Dry, normal turgor, no rashes or lesions noted. Course - Re-evaluation Re-evalutation: 08/28/19 Nontoxic, well appearing 69 y/o female presents for dysuria, pelvic/bladder pressure, and low back pain. Denies fever, nausea/vomiting, or flank pain. No cva tenderness. Abd soft, nontender. PE otherwise unremarkable. Pt is afebrile, nontachycardic on repeat vitals. Pt's UA shows UTI, pt has been taking Azo. Pt prescribed Keflex and pyridium. Urine culture sent. Strict return precautions given. Pt given close follow up with PCP. Pt voices understanding and agrees with plan of care. - Vital Signs Vital signs: Temp Pulse Resp BP Pulse Ox 98.2 F 90 18 143/74 H 98 08/28/19 17:41 08/28/19 17:41 08/28/19 17:41 08/28/19 17:41 08/28/19 17:41 - Laboratory Laboratory results interpreted by me: 08/28/19 15:15 Urine Protein 100 H Urine Blood MODERATE H Urine Nitrite (Reflex) POSITIVE H Leukocyte Esterase Rfl MODERATE H Discharge - Discharge Clinical Impression: Acute UTI Condition: Stable Disposition: HOME, SELF-CARE Instructions: Cephalexin ([facility]) Additional Instructions: You have a urinary tract infection. Please take Keflex as prescribed and finish all doses even if you feel better or we call you to change it based on your urine culture. Please take pyridium as prescribed for bladder spasms, please note it will turn your urine red/orange. Follow up with your primary care doctor in 3-5 days. Return to ER for any worsening symptoms, including flank pain, nausea/vomiting, fever, abdominal pain, chest pain, shortness of breath, or any other symptoms that are concerning to you. Prescriptions: Cephalexin Monohydrate [Keflex 500 mg Capsule] 500 mg PO BID 5 Days #10 capsule Phenazopyridine HCl [Pyridium 200 mg Tablet] 200 mg PO TID #8 tablet Forms: Return to Work Referrals: LYUBOV CLOUD MD [ACTIVE STAFF] - Follow up in 3-5 days [facility] [Provider Group] - Follow up in 3-5 days
[2019-08-28 17:44] VITALS: BP 143/74
== END 2019-08-28 17:40 | disposition home or self-care (01) ==
LOC: ER 15:03
DX: N39.0 Urinary tract infection, site not specified (principal); R30.0 Dysuria; M54.5 Low back pain; R11.0 Nausea; I10 Essential (primary) hypertension; J45.909 Unspecified asthma, uncomplicated; Z88.0 Allergy status to penicillin; Z88.2 Allergy status to sulfonamides; Z88.1 Allergy status to other antibiotic agents; Z88.8 Allergy status to other drugs, medicaments and biological substances
CPT/HCPCS: 81001; 87086; 87088; 87186; 99283